=== PATIENT | male | born 1950 | race Caucasian/White ===

== ENCOUNTER 2018-04-26 06:03 | Day surgery (SDC) | payer MEDICARE, MEDICAID ==
[~2018-04-26] VITALS: Ht 177.8 cm; Wt 88.9 kg
[~2018-04-26 06:03] MED LIST: /LAMO15TA; ABIL1TAB11 PO; ABIL5TAB; ACTO15TA; ANAF50CA PO; ARIC5TAB; ARTI99.0 OU; ASPI325T; BUPR15TA PO; CLOMIPRAMINE; ERYTOIN8 TOP; FISH7.5C PO; FLUVOXAMINE; GEMF600T; GLUC500T; JANU100T PO; KLON0.5T PO; LEVA250T; LIPI20TA PO; LISI20TA5; METF10004 PO; METF500T13 PO; MOME0.1C3 TOP; OCUVTAB4 PO; PLAV1TAB2 PO; PLAV75TA2; SIMV40TA2; STAR120T3 PO; STARLIX; TOPR50TA23 PO; TYLE500T78 PO; VITA100067 PO; VITA400C7 PO; ZEST1TAB5 PO; ZONISAMIDE
[2018-04-26] MEDS ORDERED: ASPI1TAB PO (06:43)
[2018-04-26] MEDS ORDERED: TOBRADEX OPHTH OINT 3.5 GM As Ordered ONE (06:43)
[2018-04-26] MEDS ORDERED: LIDOCAINE 3.5 % 1ML OPHTH TOPICAL GEL OU ONE (07:00)
[2018-04-26] MEDS ORDERED: HumaLOG INSULIN (NovoLOG) PER UNIT As Ordered ONE (07:20)
[2018-04-26] MEDS ORDERED: HumaLOG INSULIN (NovoLOG) PER UNIT SC ONE (07:30)
[2018-04-26] MEDS ORDERED: LR 1,000 ML IV ONE (07:30)
[2018-04-26] MEDS ORDERED: POVIDONE-IODINE 5% OPHTH PREP SOL 30ML As Ordered ONE (07:54)
[2018-04-26] MEDS ORDERED: MIDAZOLAM INJ 2 MG/2 ML VIAL (J2250) As Ordered ONE (08:06)
[2018-04-26] MEDS ORDERED: PROPOFOL 200 MG/20 ML VIAL As Ordered ONE (08:06)
[2018-04-26] MEDS ORDERED: fentaNYL 100 MCG/2 ML INJECTION (J3010) As Ordered ONE (08:06)
[2018-04-26] MEDS: LIDOCAINE 2% W/EPIN INJ 20ML **PRES FREE As Ordered ONE (08:45)
[2018-04-26 09:45] VITALS: BP 127/62
[2018-04-26] MEDS ORDERED: ONDANSETRON 4MG/2ML VIAL (J2405) IV PRN (09:45)
--- NOTE | 2018-04-28 07:58 | RO ---
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 PROCEDURE: Bilateral entropion repair with tarsal resection both eyes. SURGEON: Dr. Denisa Benítez. VETERINARY MILK SPECIALIST: None. ANESTHESIA: ESTIMATED BLOOD LOSS: PROCEDURE IN DETAIL: The patient was brought to the operating room and laid in supine position. The was prepped and draped for ophthalmic surgery both sides following which, attention was first directed to the right eye. 2% lidocaine with 1:100,000 epinephrine was then injected into the lateral lower lid. Then after waiting for a few minutes, a Chalazion clamp was placed at the junction of the lateral third and the middle third and the lid was everted. With the help of #15 blade, a triangular piece of the tarsus along with conjunctiva was excised. Tip of the triangle was at the ciliary margin. After the tip was excised, a #6-0 Vicryl suture which was double arm was used and tied in a shoestring pattern and then the knot was tied. This resulted in correction of the spastic entropion, following which the lid speculum was removed. During the procedure, hemostasis was obtained as necessary. Excellent lid position was noted. Exactly the same procedure was repeated for the left lower lid. After the surgery, ice packs were applied and patient was returned to the recovery room in stable condition.
== END 2018-04-26 10:10 | disposition home or self-care (01) ==
LOC: M SDC 06:03
PROVIDERS: ATTEND Ophthalmology
DX: H02.042 Spastic entropion of right lower eyelid (principal); H02.045 Spastic entropion of left lower eyelid; E11.9 Type 2 diabetes mellitus without complications; D72.829 Elevated white blood cell count, unspecified; I11.9 Hypertensive heart disease without heart failure; E78.00 Pure hypercholesterolemia, unspecified; I25.10 Atherosclerotic heart disease of native coronary artery without angina pectoris; I45.10 Unspecified right bundle-branch block; K21.9 Gastro-esophageal reflux disease without esophagitis; M12.9 Arthropathy, unspecified; M81.0 Age-related osteoporosis without current pathological fracture; L21.9 Seborrheic dermatitis, unspecified; F31.9 Bipolar disorder, unspecified; F42.9 Obsessive-compulsive disorder, unspecified; R06.83 Snoring; G47.33 Obstructive sleep apnea (adult) (pediatric); Z79.899 Other long term (current) drug therapy; Z79.01 Long term (current) use of anticoagulants; Z79.84 Long term (current) use of oral hypoglycemic drugs; Z95.5 Presence of coronary angioplasty implant and graft
CPT/HCPCS: 67916; 88302; J2250; J3010